=== PATIENT | male | born 1955 | race African-American/Black ===

== ENCOUNTER 2016-12-31 08:35 | Emergency (ER) | payer MEDICAID ==
[~2016-12-31] VITALS: Ht 182.9 cm; Wt 90.9 kg
[2016-12-31 09:41] VITALS: BP 150/99
== END 2016-12-31 10:32 | disposition home or self-care (01) ==
LOC: ER 08:48
DX: J06.9 Acute upper respiratory infection, unspecified (principal); I10 Essential (primary) hypertension; E78.00 Pure hypercholesterolemia, unspecified
CPT/HCPCS: 99282

== ENCOUNTER 2018-03-04 11:35 | Inpatient (IN) | payer MEDICAID ==
[~2018-03-04] VITALS: Ht 180.3 cm; Wt 93.4 kg
[2018-03-04] MEDS ORDERED: SODIUM CHLORIDE 0.9% 1,000 ML IV ONE (14:52)
[2018-03-04] MEDS ORDERED: MECLIZINE 25MG TABLET PO ONE (15:00)
[2018-03-04 15:47] LABS: *AMPHETAMINES SCREEN URINE NEGATIVE (NEGATIVE); *BARBITURATES SCREEN URINE NEGATIVE (NEGATIVE)
[2018-03-04 15:48] LABS: *BENZODIAZEPINES SCREEN URINE NEGATIVE (NEGATIVE); *COCAINE SCREEN URINE NEGATIVE (NEGATIVE); METHADONE URINE SCREEN NEGATIVE (NEGATIVE); OPIATES URINE SCREEN NEGATIVE (NEGATIVE); PHENCYCLIDINE URINE SCREEN NEGATIVE (NEGATIVE)
[2018-03-04 15:49] LABS: CANNABINOID URINE SCREEN NEGATIVE (NEGATIVE)
[2018-03-04 15:56] LABS: BASOPHILS % 1.1 % (0.0-2.0); EOSINOPHILS % 6.4 % (0.0-5.0); HEMATOCRIT. 42.7 % (42.0-52.0); HEMOGLOBIN. 13.9 g/dL (14.0-18.0); LYMPHOCYTES % 24.6 % (20.0-50.0); MEAN CORPUSCULAR HEMOGLOBIN 27.3 pg (28.0-32.0); MEAN CORPUSCULAR VOLUME 84.1 fL (80.0-94.0); MEAN PLATELET VOLUME 7.5 fl (7.4-10.4); MONOCYTES % 7.1 % (2.0-8.0); NEUTROPHILS % 60.8 % (40.0-76.0); PLATELET 305 x1000/uL (130-400); RED BLOOD CELL COUNT 5.08 mill/uL (4.7-6.1); RED CELL DISTRIBUTION WIDTH 16.2 % (11.6-14.6)
[2018-03-04 16:02] LABS: CHLORIDE 104 mEq/L (98-107)
[2018-03-04 16:04] LABS: PARTIAL THROMBOPLASTIN TIME 29.9 sec (23.4-31.0); PROTHROMBIN TIME 10.2 sec (9.1-11.1)
[2018-03-04] MEDS: CLONIDINE 0.1MG TABLET PO PRN (20:58)
[2018-03-04 22:05] VITALS: BP 166/96
[2018-03-04] MEDS ORDERED: CLONIDINE 0.1MG TABLET PO PRN (22:45)
[2018-03-04] MEDS: HYDROCODONE/ACETAMINOPHEN 5/325MG TABLET PO PRN (23:02)
[2018-03-04] MEDS: BENAZEPRIL 10MG TABLET PO SCH (23:02)
[2018-03-04] MEDS: AMLODIPINE 10MG TABLET PO SCH (23:02)
[2018-03-04] MEDS: ENOXAPARIN 30MG/0.3ML SYR SUBCUT SCH (23:06)
[2018-03-05] VITALS: BP 138/75
[2018-03-05 04:00] VITALS: BP 109/70
[2018-03-05 06:42] LABS: CHLORIDE 104 mEq/L (98-107)
[2018-03-05 06:51] LABS: EOSINOPHILS % 8.5 % (0.0-5.0); HEMATOCRIT. 37.7 % (42.0-52.0); HEMOGLOBIN. 12.4 g/dL (14.0-18.0); LYMPHOCYTES % 31.1 % (20.0-50.0); MEAN CORPUSCULAR HEMOGLOBIN 27.9 pg (28.0-32.0); MEAN CORPUSCULAR VOLUME 84.5 fL (80.0-94.0); MEAN PLATELET VOLUME 7.8 fl (7.4-10.4); MONOCYTES % 7.9 % (2.0-8.0); NEUTROPHILS % 51.5 % (40.0-76.0); PLATELET 263 x1000/uL (130-400); RED BLOOD CELL COUNT 4.47 mill/uL (4.7-6.1); RED CELL DISTRIBUTION WIDTH 15.8 % (11.6-14.6)
[2018-03-05 06:58] LABS: LDL CHOLESTEROL 91 mg/dL (5-100)
[2018-03-05 06:59] LABS: HDL CHOLESTEROL 31 mg/dL (40-59)
[2018-03-05 08:00] VITALS: BP 127/76
[2018-03-05] MEDS: AMLODIPINE 10MG TABLET PO SCH (09:44)
[2018-03-05] MEDS: ENOXAPARIN 30MG/0.3ML SYR SUBCUT SCH ×2 (09:45→20:46)
[2018-03-05] MEDS: ASPIRIN 325MG TABLET PO SCH (09:48)
[2018-03-05 12:00] VITALS: BP_SYST 121; BP_SYST 126; BP_SYST 142; BP_DIAS 72; BP_DIAS 79; BP_DIAS 84
[2018-03-05] MEDS: HYDROCHLOROTHIAZIDE 25MG TABLET PO SCH (12:48)
[2018-03-05] MEDS: BENAZEPRIL 10MG TABLET PO SCH (12:48)
[2018-03-05 16:00] VITALS: BP 121/71
[2018-03-05] MEDS ORDERED: MECLIZINE 25MG TABLET PO PRN (17:45)
[2018-03-05 20:00] VITALS: BP_SYST 143; BP_SYST 156; BP_SYST 157; BP_DIAS 86; BP_DIAS 87; BP_DIAS 93
[2018-03-06] VITALS: BP 138/81
[2018-03-06] MEDS: HYDROCODONE/ACETAMINOPHEN 5/325MG TABLET PO PRN ×2 (01:23→15:40)
[2018-03-06 04:00] VITALS: BP 127/75
[2018-03-06 06:48] LABS: BASOPHILS % 0.5 % (0.0-2.0); EOSINOPHILS % 6.8 % (0.0-5.0); HEMATOCRIT. 39.8 % (42.0-52.0); HEMOGLOBIN. 12.9 g/dL (14.0-18.0); LYMPHOCYTES % 20.6 % (20.0-50.0); MEAN CORPUSCULAR HEMOGLOBIN 27.4 pg (28.0-32.0); MEAN CORPUSCULAR VOLUME 84.3 fL (80.0-94.0); MEAN PLATELET VOLUME 7.9 fl (7.4-10.4); MONOCYTES % 7.2 % (2.0-8.0); NEUTROPHILS % 64.9 % (40.0-76.0); PLATELET 288 x1000/uL (130-400); RED BLOOD CELL COUNT 4.72 mill/uL (4.7-6.1); RED CELL DISTRIBUTION WIDTH 15.7 % (11.6-14.6)
[2018-03-06 08:00] VITALS: BP 133/83
[2018-03-06] MEDS: ENOXAPARIN 30MG/0.3ML SYR SUBCUT SCH (09:52)
[2018-03-06] MEDS: AMLODIPINE 10MG TABLET PO SCH (09:53)
[2018-03-06] MEDS: ASPIRIN 325MG TABLET PO SCH (09:53)
[2018-03-06] MEDS: HYDROCHLOROTHIAZIDE 25MG TABLET PO SCH (09:54)
[2018-03-06] MEDS: BENAZEPRIL 10MG TABLET PO SCH (09:54)
[2018-03-06 11:42] LABS: CHLORIDE 103 mEq/L (98-107)
[2018-03-06 12:00] VITALS: BP 167/92
[2018-03-06] MEDS ORDERED: POTASSIUM CHLORIDE 20MEQ TABLET SR PO SCH (14:30)
[2018-03-06] MEDS: CLONIDINE 0.1MG TABLET PO PRN (15:39)
[2018-03-06 16:00] VITALS: BP 127/76
[2018-03-06 16:18] VITALS: BP 167/92
== END 2018-03-06 18:21 | disposition home or self-care (01) | DRG 470 ==
LOC: ER 11:35 → EDBEDREQ 16:22 → ENRESERV 20:45 → 7WST 22:23
PROVIDERS: ADMIT Internal Medicine; ATTEND Internal Medicine
DX: I12.9 Hypertensive chronic kidney disease with stage 1 through stage 4 chronic kidney disease, or unspecified chronic kidney disease (principal); G90.8 Other disorders of autonomic nervous system; E78.00 Pure hypercholesterolemia, unspecified; E78.5 Hyperlipidemia, unspecified; R42 Dizziness and giddiness; E87.6 Hypokalemia; N18.2 Chronic kidney disease, stage 2 (mild)
CPT/HCPCS: 36415; 70551; 71045; 80048; 80061; 80305; 83735; 83880; 84484; 93005; 93306; 96360; 97162; 99285; J1650; J7030; J8597

== ENCOUNTER 2018-03-07 14:59 | Emergency (ER) | payer MEDICAID ==
[~2018-03-07] VITALS: Ht 180.3 cm; Wt 96.0 kg
[2018-03-07 15:05] VITALS: BP 164/86
== END 2018-03-07 19:30 | disposition left against medical advice (07) ==
LOC: ER 14:59
DX: Z53.21 Procedure and treatment not carried out due to patient leaving prior to being seen by health care provider (principal)

== ENCOUNTER 2019-08-23 17:02 | Emergency (ER) | payer MEDICAID, OTHER ==
[~2019-08-23] VITALS: Ht 177.8 cm; Wt 90.0 kg
[2019-08-23 17:43] VITALS: BP 159/97
== END 2019-08-23 18:59 | disposition left against medical advice (07) ==
LOC: ER 17:02
DX: Z53.21 Procedure and treatment not carried out due to patient leaving prior to being seen by health care provider (principal); R10.9 Unspecified abdominal pain; M54.2 Cervicalgia
CPT/HCPCS: 93005

== ENCOUNTER 2019-11-16 13:44 | Emergency (ER) | payer OTHER ==
[~2019-11-16] VITALS: Ht 177.8 cm; Wt 82.0 kg
[2019-11-16 14:40] LABS: BASOPHILS % 0.3 % (0.0-2.0); EOSINOPHILS % 8.1 % (0.0-5.0); HEMATOCRIT. 39.5 % (42.0-52.0); HEMOGLOBIN. 12.9 g/dL (14.0-18.0); MEAN CORPUSCULAR HEMOGLOBIN 26.8 pg (28.0-32.0); MEAN CORPUSCULAR VOLUME 82.1 fL (80.0-94.0); MEAN PLATELET VOLUME 7.9 fl (7.4-10.4); MONOCYTES % 9.1 % (2.0-8.0); NEUTROPHILS % 59.5 % (40.0-76.0); PLATELET 281 x1000/uL (130-400); RED BLOOD CELL COUNT 4.81 mill/uL (4.7-6.1); RED CELL DISTRIBUTION WIDTH 17.8 % (11.6-14.6)
[2019-11-16 14:52] LABS: CHLORIDE 104 mEq/L (98-107)
[2019-11-16 14:59] LABS: *AMPHETAMINES SCREEN URINE NEGATIVE (NEGATIVE); *BARBITURATES SCREEN URINE NEGATIVE (NEGATIVE); *BENZODIAZEPINES SCREEN URINE NEGATIVE (NEGATIVE); *COCAINE SCREEN URINE NEGATIVE (NEGATIVE); CANNABINOID URINE SCREEN NEGATIVE (NEGATIVE); METHADONE URINE SCREEN NEGATIVE (NEGATIVE); OPIATES URINE SCREEN NEGATIVE (NEGATIVE)
[2019-11-16 15:00] LABS: PHENCYCLIDINE URINE SCREEN NEGATIVE (NEGATIVE)
[2019-11-17] MEDS ORDERED: CLONIDINE 0.2MG TABLET PO ONE (00:30)
[2019-11-17 01:03] VITALS: BP 167/103
== END 2019-11-17 01:20 | disposition short-term general hospital (02) ==
LOC: ER 13:44 → CANBEDREQ 19:20 → ER 11-17 01:20
DX: I44.1 Atrioventricular block, second degree (principal); I10 Essential (primary) hypertension; M79.89 Other specified soft tissue disorders; Z11.59 Encounter for screening for other viral diseases; Z86.19 Personal history of other infectious and parasitic diseases
CPT/HCPCS: 36415; 71045; 80053; 80305; 83880; 84484; 85025; 87635; 93005; 99285

== ENCOUNTER 2020-07-06 20:47 | Emergency (ER) | payer OTHER ==
[~2020-07-06] VITALS: Ht 180.3 cm; Wt 96.0 kg
[2020-07-06] MEDS ORDERED: ACETAMINOPHEN 325MG TABLET PO ONE (22:30)
[2020-07-06] MEDS ORDERED: KETOROLAC 30MG/ML VIAL IV STA (23:27)
[2020-07-06] MEDS ORDERED: ONDANSETRON HCL 4MG/2ML INJ IV STA (23:27)
[2020-07-06] MEDS ORDERED: SODIUM CHLORIDE 0.9% 1,000 ML IV ONE (23:30)
[2020-07-06 23:50] LABS: BASOPHILS % 0.9 % (0.0-2.0); EOSINOPHILS % 3.8 % (0.0-5.0); HEMATOCRIT. 41.7 % (42.0-52.0); HEMOGLOBIN. 13.8 g/dL (14.0-18.0); LYMPHOCYTES % 19.3 % (20.0-50.0); MEAN CORPUSCULAR HEMOGLOBIN 26.6 pg (28.0-32.0); MEAN CORPUSCULAR VOLUME 80.3 fL (80.0-94.0); MEAN PLATELET VOLUME 7.6 fl (7.4-10.4); MONOCYTES % 7.1 % (2.0-8.0); NEUTROPHILS % 68.9 % (40.0-76.0); PLATELET 324 x1000/uL (130-400); RED CELL DISTRIBUTION WIDTH 16.6 % (11.6-14.6)
[2020-07-06 23:58] LABS: CHLORIDE 104 mEq/L (98-107)
[2020-07-07] MEDS ORDERED: BUTA1CAP45 MT (00:59)
[2020-07-07] MEDS ORDERED: CLONIDINE 0.1MG TABLET PO ONE (01:00)
[2020-07-07 01:28] VITALS: BP 162/89
== END 2020-07-07 01:32 | disposition home or self-care (01) ==
LOC: ER 20:47
DX: R51.9 Headache, unspecified (principal); I10 Essential (primary) hypertension
CPT/HCPCS: 36415; 70450; 80053; 85025; 96361; 96374; 99284; J1885; J7030

== ENCOUNTER 2021-06-20 19:30 | Emergency (ER) | payer MEDICARE, MEDICAID ==
[~2021-06-20] VITALS: Ht 177.8 cm; Wt 90.0 kg
[~2021-06-20 19:30] MED LIST: BUTA1CAP45 MT
[2021-06-20 20:16] LABS: BASOPHILS % 0.4 % (0.0-2.0); EOSINOPHILS % 4.5 % (0.0-5.0); HEMATOCRIT. 42.3 % (42.0-52.0); HEMOGLOBIN. 13.8 g/dL (14.0-18.0); LYMPHOCYTES % 12.9 % (20.0-50.0); MEAN CORPUSCULAR HEMOGLOBIN 26.3 pg (28.0-32.0); MEAN CORPUSCULAR VOLUME 80.3 fL (80.0-94.0); MEAN PLATELET VOLUME 7.9 fl (7.4-10.4); NEUTROPHILS % 74.2 % (40.0-76.0); PLATELET 310 x1000/uL (130-400); RED BLOOD CELL COUNT 5.26 mill/uL (4.7-6.1); RED CELL DISTRIBUTION WIDTH 16.7 % (11.6-14.6)
[2021-06-20 20:19] LABS: CHLORIDE 101 mEq/L (98-107); PROTHROMBIN TIME 11.1 sec (9.6-11.0)
[2021-06-20] MEDS ORDERED: CLONIDINE 0.2MG TABLET PO ONE (23:00)
[2021-06-21] MEDS ORDERED: CLONIDINE 0.2MG TABLET PO NR (00:30)
[2021-06-21 01:03] LABS: CLARITY URINE CLEAR (CLEAR); COLOR URINE YELLOW (YELLOW); KETONES URINE 1+ (NEGATIVE); LEUKOCYTE ESTERASE URINE 1+ (NEGATIVE); NITRITE URINE POSITIVE (NEGATIVE); OCCULT BLOOD URINE 2+ (NEGATIVE); PH URINE 5.5 (4.5-8.0); PROTEIN URINE 3+ (NEGATIVE); SPECIFIC GRAVITY URINE 1.019 (1.005-1.030); UROBILINOGEN URINE 0.2 E.U./dL (0.2-1.0)
[2021-06-21] MEDS ORDERED: LEVO500T89 MT (03:16)
[2021-06-21] MEDS ORDERED: LOSA50TA41 MT (03:16)
[2021-06-21 03:41] VITALS: BP 107/83
== END 2021-06-21 03:42 | disposition home or self-care (01) ==
LOC: ER 19:30
DX: N30.91 Cystitis, unspecified with hematuria (principal); I16.0 Hypertensive urgency; Z91.14 Patient's other noncompliance with medication regimen
CPT/HCPCS: 36415; 71045; 74176; 80053; 81003; 83880; 84484; 85025; 87077; 87186; 99285

== ENCOUNTER 2022-09-12 08:38 | Emergency (ER) | payer MEDICARE, OTHER ==
[~2022-09-12] VITALS: Ht 182.9 cm; Wt 97.0 kg
[~2022-09-12 08:38] MED LIST changes: +LEVO-65 MT; +LOSA50TA41 MT
[2022-09-12 08:42] VITALS: TEMP 98.1; O2SAT 100
[2022-09-12 09:24] LABS: DIFFERENTIAL COMMENT 0; HEMOGLOBIN. 12.9 g/dL (14.0-18.0); PLATELET 291 x1000/uL (130-400)
[2022-09-12 09:37] LABS: CHLORIDE 105 mEq/L (98-107); INDEX HEMOLYSI 1 (1-3); INDEX ICTERIC 1 (1-4); INDEX LIPEMIC 1 (1-3); POTASSIUM 3.1 mEq/L (3.5-5.1); SODIUM 135 mEq/L (136-145)
[2022-09-12 09:38] LABS: CALCIUM 9.3 mg/dL (8.5-10.1)
[2022-09-12 09:43] LABS: BASOPHILS % 0.9 % (0.0-2.0); EOSINOPHILS % 9.5 % (0.0-5.0); HEMATOCRIT. 39.3 % (42.0-52.0); LYMPHOCYTES % 18.2 % (20.0-50.0); MEAN CORPUSCULAR HEMOGLOBIN 26.3 pg (28.0-32.0); MEAN CORPUSCULAR HGB CONC 32.8 g/dL (31.0-37.0); MEAN CORPUSCULAR VOLUME 80.3 fL (80.0-94.0); MEAN PLATELET VOLUME 8.2 fl (7.4-10.4); MONOCYTES % 10.8 % (2.0-8.0); NEUTROPHILS % 60.6 % (40.0-76.0); RED CELL DISTRIBUTION WIDTH 16.1 % (11.6-14.6); WHITE BLOOD COUNT 6.2 x1000/uL (4.5-11.0)
[2022-09-12 09:47] LABS: ALANINE AMINOTRANSFERASE 28 IU/L (13-61); ALBUMIN 3.6 g/dL (3.4-5.0); ASPARTATE AMINOTRANSFERASE 30 IU/L (15-37); BILIRUBIN TOTAL 0.5 mg/dL (0.1-1.0); CARBON DIOXIDE 24 mEq/L (21-32); CREATININE 1.4 mg/dL (0.6-1.3); GLUCOSE 111 mg/dL (70-105); NT PRO B-TYPE NATRIURETIC PEP 18 pg/mL (5-125); PROTEIN TOTAL 8.2 g/dL (6.0-8.3); TROPONIN I HIGH SENSITIVITY 25 ng/L (<78); UREA NITROGEN BLOOD 26 mg/dL (7-21)
[2022-09-12] MEDS ORDERED: MECLIZINE 25MG TABLET PO ONE (10:15)
[2022-09-12] MEDS ORDERED: MECLIZINE 12.5MG TABLET PO NR (10:30)
[2022-09-12] MEDS ORDERED: SODIUM CHLORIDE 0.9% 1,000 ML IV ONE (10:30)
[2022-09-12] MEDS ORDERED: MECL-159 PO (12:09)
[2022-09-12] MEDS ORDERED: LISINOPRIL 40MG TABLET PO ONE (12:45)
[2022-09-12 13:00] VITALS: BP 200/100; PULSE 80; RESP 16
== END 2022-09-12 13:05 | disposition home or self-care (01) ==
LOC: ER 08:38 → CANBEDREQ 09-13 00:33
DX: R42 Dizziness and giddiness (principal)
CPT/HCPCS: 99285; 96360; 70450; 71045; 80053; 83880; 85025; 84484; 36415; 93005; J8597; J7030

== ENCOUNTER 2022-10-06 10:11 | Emergency (ER) | payer MEDICARE, OTHER ==
[~2022-10-06] VITALS: Ht 177.8 cm; Wt 95.0 kg
[~2022-10-06 10:11] MED LIST changes: +MECL-159 PO
[2022-10-06 10:20] VITALS: O2SAT 98
[2022-10-06 11:11] LABS: BASOPHILS % 1.2 % (0.0-2.0); DIFFERENTIAL COMMENT 0; EOSINOPHILS % 9.7 % (0.0-5.0); HEMATOCRIT. 40.7 % (42.0-52.0); HEMOGLOBIN. 13.3 g/dL (14.0-18.0); LYMPHOCYTES % 21.6 % (20.0-50.0); MEAN CORPUSCULAR HEMOGLOBIN 26.1 pg (28.0-32.0); MEAN CORPUSCULAR HGB CONC 32.7 g/dL (31.0-37.0); MEAN CORPUSCULAR VOLUME 79.9 fL (80.0-94.0); MEAN PLATELET VOLUME 7.6 fl (7.4-10.4); MONOCYTES % 8.5 % (2.0-8.0); PLATELET 436 x1000/uL (130-400); RED BLOOD CELL COUNT 5.09 mill/uL (4.7-6.1); RED CELL DISTRIBUTION WIDTH 15.8 % (11.6-14.6); WHITE BLOOD COUNT 7.7 x1000/uL (4.5-11.0)
[2022-10-06 11:33] LABS: CHLORIDE 105 mEq/L (98-107); INDEX HEMOLYSI 1 (1-3); INDEX ICTERIC 1 (1-4); INDEX LIPEMIC 1 (1-3); POTASSIUM 3.1 mEq/L (3.5-5.1); SODIUM 136 mEq/L (136-145)
[2022-10-06 11:46] LABS: ALANINE AMINOTRANSFERASE 51 IU/L (13-61); ALBUMIN 3.3 g/dL (3.4-5.0); ASPARTATE AMINOTRANSFERASE 34 IU/L (15-37); BILIRUBIN TOTAL 0.5 mg/dL (0.1-1.0); CALCIUM 9.8 mg/dL (8.5-10.1); CARBON DIOXIDE 28 mEq/L (21-32); CLARITY URINE CLOUDY (CLEAR); COLOR URINE YELLOW (YELLOW); CREATININE 1.6 mg/dL (0.6-1.3); GLUCOSE 101 mg/dL (70-105); GLUCOSE URINE NEGATIVE (NEGATIVE); KETONES URINE NEGATIVE (NEGATIVE); LEUKOCYTE ESTERASE URINE 3+ (NEGATIVE); NITRITE URINE NEGATIVE (NEGATIVE); OCCULT BLOOD URINE 2+ (NEGATIVE); PH URINE 5.5 (4.5-8.0); PROTEIN TOTAL 9.1 g/dL (6.0-8.3); PROTEIN URINE 2+ (NEGATIVE); SPECIFIC GRAVITY URINE 1.017 (1.005-1.030); UREA NITROGEN BLOOD 24 mg/dL (7-21); UROBILINOGEN URINE 0.2 E.U./dL (0.2-1.0)
[2022-10-06 12:19] LABS: BACTERIA URINE 2+; SQUAMOUS EPITHELIAL CELL URINE NONE SEEN /lpf (RARE/1+); WBC URINE TNTC /hpf (0-2); YEAST URINE NONE SEEN
[2022-10-06] MEDS ORDERED: NITR100C MT ×2 (14:40)
[2022-10-06 16:34] VITALS: BP 137/84; PULSE 87; RESP 18; TEMP 98.9
[2022-10-07] MEDS ORDERED: HYDR12.54 PO (22:03)
[2022-10-07] MEDS ORDERED: LISI40TA13 PO (22:03)
[2022-10-10] MEDS ORDERED: NITR100C MT (11:51)
[2022-10-10] MEDS ORDERED: LOSA50TA41 PO (11:51)
[2022-10-10] MEDS ORDERED: AMLO5TAB88 PO (11:51)
== END 2022-10-06 16:35 | disposition home or self-care (01) ==
LOC: ER 10:41
DX: N39.0 Urinary tract infection, site not specified (principal); I10 Essential (primary) hypertension; Z79.899 Other long term (current) drug therapy
CPT/HCPCS: 36415; 74176; 80053; 81003; 85025; 87077; 87186; 93005; 99284